=== PATIENT | female | born 1965 | race American Indian/Alaskan Native ===

== ENCOUNTER 2021-03-27 12:09 | Day surgery (SDC) | payer OTHER ==
[~2021-03-27 12:09] MED LIST: Midazolam 1 MG/ML 2 ML SDV ONE; Propofol 200 MG/20 ML SDV ONE; fentaNYL 100 MCG/2 ML SDV ONE
--- NOTE | 2021-03-27 13:34 | PCM.PREANE ---
Preanesthetic Assessment - Anesthesia/Transfusion/Family Hx Anesthesia History: Prior Anesthesia Without Reaction Family History of Anesthesia Reaction: No Transfusion History: Prior Transfusion Without Reaction - Review of Systems General: No Symptoms Pulmonary: No Symptoms Cardiovascular: No Symptoms Gastrointestinal: No Symptoms Neurological: No Symptoms Other: Reports: None - Physical Assessment NPO Status Date: 03/27/21 NPO Status Time: 00:01 Height: 5 ft 7 in Weight: 198 lb ASA Class: 2 Mental Status: Alert & Oriented x3 Airway Class: Mallampati = 2 Dentition: Reports: Normal Dentition ROM/Head Extension: Full Lungs: Clear to Auscultation, Normal Respiratory Effort Cardiovascular: Regular Rate, Regular Rhythm - Lab Values: Laboratory Last Values SARS-CoV-2 RNA (NIKHIL) NEGATIVE (NEGATIVE) 03/27/21 12:15 - Allergies Allergies/Adverse Reactions: Allergies Allergy/AdvReac Type Severity Reaction Status Date / Time sumatriptan [From Imitrex] Allergy Shortness Verified 03/26/21 12:35 of Breath - Anesthesia Plan Pre-Op Medication Ordered: None - Acknowledgements Anesthesia Type Planned: General Anesthesia Pt an Appropriate Candidate for the Planned Anesthesia: Yes Alternatives and Risks of Anesthesia Discussed w Pt/Guardian: Yes Pt/Guardian Understands and Agrees with Anesthesia Plan: Yes Additional Comments: npo tob quit 1998 etoh quit 1998 no cv problems hayfever aodm prema obesity bmi 31 par no questions PreAnesthesia Questionnaire HEENT History: Reports: Other (See Below) Other HEENT History: wears glasses Cardiovascular History: Reports: High Cholesterol Respiratory History: Reports: Sleep Apnea Other Respiratory History: does not use CPAP Gastrointestinal History: Reports: Colon Polyp, GERD Genitourinary History: Reports: Renal Calculus 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: Musculoskeletal History: Reports: Fracture Other Musculoskeletal History: hx fx ankle Neurological History: Reports: Migraines Other Neuro History: has not had migranes for "a long time" Psychiatric History: Reports: None Endocrine/Metabolic History: Reports: Diabetes, Type II, Hypothyroidism, Obesity/BMI 30+ Other Endocrine/Metabolic History: hypothyroidism in the past, no longer on medication Hematologic History: Reports: Blood Transfusion(s) Immunologic History: Reports: None Oncologic (Cancer) History: Reports: None Dermatologic History: Reports: Eczema - Past Surgical History Head Surgeries/Procedures: Reports: None HEENT Surgical History: Reports: None Cardiovascular Surgical History: Reports: None Respiratory Surgical History: Reports: None GI Surgical History: Reports: Cholecystectomy, Colonoscopy Female Surgical History: Reports: Hysterectomy, Salpingo-Oophorectomy Endocrine Surgical History: Reports: None Neurological Surgical History: Reports: None Musculoskeletal Surgical History: Reports: Shoulder Surgery Other Musculoskeletal Surgeries/Procedures:: right rotator cuff repair Oncologic Surgical History: Reports: None Dermatological Surgical History: Reports: None - SUBSTANCE USE Tobacco Use Status *Q: Former Tobacco User Tobacco Use Within Last Twelve Months: No - HOME MEDS Home Medications: Home Meds Omeprazole 20 mg PO DAILY 10/15/16 [History] metFORMIN HCl [Metformin ER Osmotic] 1 tab PO BID 10/15/16 [History] Alogliptin Benzoate [Alogliptin] 25 mg PO DAILY 03/26/21 [History] Cholecalciferol (Vitamin D3) [Vitamin D3] 1,000 units PO DAILY 03/26/21 [History] Multivit-Min/Iron/Folic/Lutein [Multivitamin Women 50 Plus Tab] 1 tab PO DAILY 03/26/21 [History] atorvaSTATin Calcium [Lipitor] 40 mg PO DAILY 03/26/21 [History] glyBURIDE [Glyburide] 5 mg PO BID 03/26/21 [History] - CURRENT (IN HOUSE) MEDS Current Meds: Current Medications Discontinued Medications Fentanyl (Fentanyl 100 Mcg/2 Ml Sdv) Confirm Administered Dose 100 mcg .ROUTE .STK-MED ONE Stop: 03/27/21 08:05 Midazolam HCl (Midazolam 1 Mg/Ml 2 Ml Sdv) Confirm Administered Dose 2 mg .ROUTE .STK-MED ONE Stop: 03/27/21 08:04 Propofol (Propofol 200 Mg/20 Ml Sdv) Confirm Administered Dose 200 mg .ROUTE .STK-MED ONE Stop: 03/27/21 08:04
[2021-03-27] MEDS ORDERED: Lactated Ringers 1,000 ML IV SCH (13:45)
[2021-03-27] MEDS ORDERED: Propofol 200 MG/20 ML SDV ONE (14:05)
--- NOTE | 2021-03-27 14:42 | PCM.OPNOTE ---
- General Post-Op/Procedure Note Date of Surgery/Procedure: 03/27/21 Operative Procedure(s): Screening colonoscopy with polypectomy Findings: Sigmoid colon diverticulosis, transverse colon polyp x 3, ascending colon polyp Pre Op Diagnosis: History of colon polyps Post-Op Diagnosis: Sigmoid colon diverticulosis, transverse colon polyp x 3, ascending colon polyp Anesthesia Technique: [facility] [place] Primary Surgeon: Rosy Figueroa Condition: Good
[2021-03-27 15:17] VITALS: BP 118/52; PULSE 59
--- NOTE | 2021-03-27 15:34 | PCM.POSTAN ---
POST ANESTHESIA ASSESSMENT - VITAL SIGNS Vital Signs: Last Vital Signs Temp 35.6 C L 03/27/21 14:55 Pulse 59 L 03/27/21 14:55 Resp 14 03/27/21 14:55 BP 118/52 L 03/27/21 14:55 Pulse Ox 97 03/27/21 14:55 - RESPIRATORY Respiratory Status: Respiratory Rate WNL - CARDIOVASCULAR CV Status: Pulse Rate WNL - GASTROINTESTINAL GI Status: No Symptoms - PAIN Pain Score: 1 (cramps) - POST OP HYDRATION Hydration Status: Adequate & Stable (Doing well. Ready for Phase 2)
--- NOTE | 2021-03-27 15:35 | PCM48HPAN ---
Post Anesthesia Note - EVALUATION WITHIN 48HRS OF ANESTHETIC Vital Signs in Normal Range: Yes Patient Participated in Evaluation: Yes Respiratory Function Stable: Yes Airway Patent: Yes Cardiovascular Function Stable: Yes Hydration Status Stable: Yes Pain Control Satisfactory: Yes Nausea and Vomiting Control Satisfactory: Yes Mental Status Recovered: Yes Vital Signs: Last Vital Signs Temp 35.6 C L 03/27/21 14:55 Pulse 59 L 03/27/21 14:55 Resp 14 03/27/21 14:55 BP 118/52 L 03/27/21 14:55 Pulse Ox 97 03/27/21 14:55 - COMMENTS/OBSERVATIONS Free Text/Narrative:: Ready for discharge.
--- NOTE | 2021-03-27 20:14 | OR ---
SURGEON: ROSY FIGUEROA MD DATE OF PROCEDURE: 03/27/2021 PREOPERATIVE DIAGNOSIS: History of colon polyps. POSTOPERATIVE DIAGNOSES: 1. Ascending colon polyp. 2. Transverse colon polyp x3. 3. Diverticulosis. PROCEDURE PERFORMED: Screening colonoscopy. PRIMARY SURGEON: Rosy Figueroa MD. ANESTHESIA: MAC. INSTRUMENT USED: Olympus colonoscope. EXTENT OF EXAMINATION: To the cecum. PREPARATION: Fair. LIMITATIONS: None. INDICATIONS FOR EXAMINATION: The patient is a 55-year-old female who has a history of colon polyps as well as a family history of colon cancer. She is here for repeat five-year colonoscopy. I explained the procedure, expected perioperative course, and the risks. The patient verbalized understanding and wishes to proceed. PROCEDURE IN DETAIL: The patient was brought to the endoscopy suite and placed in the left lateral decubitus position. A time-out was completed verifying the patient's name, age, date of , allergies, and procedure to be performed. Monitored anesthesia care was induced, and continuous oxygen was provided via face mask throughout the procedure. After adequate sedation was achieved, a digital rectal exam was performed. This exam was within normal limits. A well-lubricated colonoscope was inserted into the rectum and advanced under direct visualization to the level of the cecum. The cecum was identified by both visual and anatomic landmarks. A photograph was taken of the cecal cap as well as with the scope retroflexed within the cecum. The scope was then fully withdrawn while examining the color, texture, anatomy, and integrity of the mucosa from the cecum to the anal canal. The patient had a large amount of liquid stool within the colon. Copious amounts of irrigation were used, and I was able to clean the colon enough to adequately visualize the colonic mucosa. With the scope retroflexed within the cecum, an ascending colon polyp was noted. This was removed in a piecemeal fashion using a cold biopsy forceps. The patient had three polyps within the distal transverse colon. These were all removed in a piecemeal fashion using a cold biopsy forceps. They were sent to Pathology labeled as transverse colon polyp one through three. The patient was noted to have mild diverticulosis within the sigmoid colon. The scope was then brought into the rectum and retroflexed to allow visualization of the anal canal opening. This appeared normal, and a photograph was taken. The scope was then straightened out and fully withdrawn. The cecum to anus time was 29 minutes. The patient tolerated the procedure well and was transferred to the PACU in stable condition. ENDOSCOPIC DIAGNOSES: 1. Ascending colon polyp. 2. Transverse colon polyp x3. 3. Diverticulosis. RECOMMENDATIONS: Follow up in clinic in 2 weeks. COREEN FLORES /[id number]
== END 2021-03-27 15:21 | disposition home or self-care (01) ==
LOC: MW.SDS 12:09
PROVIDERS: ATTEND Surgery
DX: Z12.11 Encounter for screening for malignant neoplasm of colon (principal); D12.2 Benign neoplasm of ascending colon; K57.30 Diverticulosis of large intestine without perforation or abscess without bleeding; E03.9 Hypothyroidism, unspecified; E11.9 Type 2 diabetes mellitus without complications; G47.33 Obstructive sleep apnea (adult) (pediatric); E66.9 Obesity, unspecified; Z98.890 Other specified postprocedural states; E78.00 Pure hypercholesterolemia, unspecified; Z01.812 Encounter for preprocedural laboratory examination; Z20.822 Contact with and (suspected) exposure to COVID-19; Z88.8 Allergy status to other drugs, medicaments and biological substances; Z79.899 Other long term (current) drug therapy; Z79.84 Long term (current) use of oral hypoglycemic drugs; Z68.31 Body mass index [BMI] 31.0-31.9, adult; Z87.891 Personal history of nicotine dependence
CPT/HCPCS: 45380; 82947; 87635; J2250; J2704; J3010; J7120; 88305; U0002